=== PATIENT | male | born 1995 | race Caucasian/White ===

== ENCOUNTER 2018-08-05 00:50 | Emergency (ER) | payer OTHER ==
[2018-08-05 00:58] VITALS: TEMP 97.4
[2018-08-05] MEDS ORDERED: Sodium Chloride 0.9% 1,000 ML IV ONE (01:21)
[2018-08-05 01:48] LABS: BASO % 0.3 % (0.0-2.0); EOS # 0.8 K/uL (0.0-0.7); EOS % 4.7 % (0.0-4.0); HEMOGLOBIN 14.8 g/dL (12.0-18.0); LYMPH % 6.1 % (20.0-40.0); MEAN CELL VOLUME 81.3 fL (80.0-94.0); MEAN CORPUSCULAR HEMOGLOBIN 26.9 pg (27.0-31.0); MEAN CORPUSCULAR HGB CONC 33.1 g/dL (33.0-37.0); MEAN PLATELET VOLUME 9.7 fL (7.2-11.7); MONO # 0.5 K/uL (0.0-0.8); MONO % 3.1 % (0.0-10.0); NEUT # 14.6 K/uL (1.8-7.0); NEUT % 85.8 % (50.0-75.0); PLATELET COUNT 234 K/uL (130-400); RED CELL DISTRIBUTION WIDTH 12.9 % (11.5-14.5)
[2018-08-05] MEDS ORDERED: Sodium Chloride 0.9% 1,000 ML ONE (01:48)
[2018-08-05 02:00] LABS: ALB/GLOB RATIO 1.7 (1.0-2.1); ALBUMIN 5.3 g/dL (3.5-5.0); ALT/SGPT 14 U/L (21-72); AST/SGOT 17 U/L (17-59); BLOOD UREA NITROGEN 9 mg/dL (9-20); CALCIUM 9.9 mg/dl (8.6-10.4); GFR NON-AFRICAN AMERICAN > 60; LIPASE 53 U/L (23-300)
[2018-08-05 02:41] LABS: EOSINOPHIL 5 % (0-4); LYMPHOCYTE 6 % (20-40); MONOCYTE 4 % (0-10); NEUTROPHIL 85 % (50-75); PLATELET ESTIMATE NORMAL (NORMAL); TOTAL CELLS COUNTED 100
--- NOTE | 2018-08-05 04:01 | C.PDOC ---
History Of Present Illness 23 year old male presents with epigastic pain associated with several episodes of vomiting and diarrhea for 6 hours [employer] after eating a salad yesterday from outside. Denies fever, recent travel, or sick contact. Time Seen by Provider: 08/05/18 01:10 Chief Complaint (Nursing): Abdominal Pain History Per: Patient History/Exam Limitations: no limitations Onset/Duration Of Symptoms: Hrs Current Symptoms Are (Timing): Still Present Location Of Pain/Discomfort: Epigastric Radiation Of Pain To:: None Quality Of Discomfort: Unable To Describe Associated Symptoms: Vomiting, Diarrhea. denies: Fever Exacerbating Factors: None Alleviating Factors: None Recent travel outside of the [place]: No Past Medical History Reviewed: Historical Data, Nursing Documentation, Vital Signs Vital Signs: Last Vital Signs Temp 97.4 F L 08/05/18 00:56 Pulse 64 08/05/18 00:56 Resp 22 08/05/18 00:56 BP 139/84 08/05/18 00:56 Pulse Ox 99 08/05/18 00:56 Family History: States: Unknown Family Hx - Social History Hx Alcohol Use: No Hx Substance Use: No Review Of Systems Constitutional: Negative for: Fever Respiratory: Negative for: Cough Gastrointestinal: Positive for: Vomiting, Abdominal Pain, Diarrhea Genitourinary: Negative for: Dysuria, Hematuria Skin: Negative for: Rash Physical Exam - Physical Exam Appears: Non-toxic Skin: Normal Color, Warm Head: Atraumatic, Normacephalic Eye(s): bilateral: Normal Inspection Oral Mucosa: Moist Chest: Symmetrical, No Tenderness Cardiovascular: Rhythm Regular Respiratory: Normal Breath Sounds, No Rales, No Rhonchi, No Wheezing Gastrointestinal/Abdominal: Bowel Sounds (Slightly increased), Soft, Tenderness (Minimal epigastric, no RLQ), No Guarding, No Rebound Back: No CVA Tenderness Neurological/Psych: Oriented x3, Normal Speech ED Course And Treatment - Laboratory Results Result Diagrams: 08/05/18 01:46 08/05/18 01:46 Lab Results: Total Bilirubin 0.9 mg/dL (0.2-1.3) 08/05/18 01:46 AST 17 U/L (17-59) 08/05/18 01:46 ALT 14 U/L (21-72) L 08/05/18 01:46 Alkaline Phosphatase 86 U/L (38-126) 08/05/18 01:46 Total Protein 8.4 g/dL (6.3-8.3) H 08/05/18 01:46 Albumin 5.3 g/dL (3.5-5.0) H 08/05/18 01:46 Globulin 3.1 gm/dL (2.2-3.9) 08/05/18 01:46 Albumin/Globulin Ratio 1.7 (1.0-2.1) 08/05/18 01:46 Lipase 53 U/L (23-300) 08/05/18 01:46 O2 Sat by Pulse Oximetry: 99 (Room air) Pulse Ox Interpretation: Normal Progress Note: Labs reviewed, patient with some elevated wbc, otherwise feels like symptoms have improved with meds, resting comfortably, tolerating PO fluids, abdomen remains soft, advised brat diet, and to return if symptoms worsen, patient understand return precautions. Disposition Counseled Patient/Family Regarding: Diagnosis, Need For Followup, Rx Given - Disposition Referrals: [facility] at [facility] [Outside] Disposition: HOME/ ROUTINE Disposition Time: 03:56 Condition: STABLE Additional Instructions: Please follow up with PMD Take meds as directed BRAT diet ( white bread/ toast. 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 - Scribe Statement The provider has reviewed the documentation as recorded by the Janeenibluis angel Pulliam All medical record entries made by the Janeenibluis angel were at my direction and personally dictated by me. I have reviewed the chart and agree that the record accurately reflects my personal performance of the history, physical exam, medical decision making, and the department course for this patient. I have also personally directed, reviewed, and agree with the discharge instructions and disposition.
[2018-08-05 04:15] VITALS: BP 130/80; PULSE 80; RESP 14
[2018-08-05 05:44] VITALS: O2SAT 99
== END 2018-08-05 04:15 | disposition home or self-care (01) ==
LOC: C.ER 00:50
DX: R10.13 Epigastric pain (principal); R11.10 Vomiting, unspecified; R19.7 Diarrhea, unspecified
CPT/HCPCS: 80053; 83690; 85025; 96374; 96375; 99284; J2405; J7030

== ENCOUNTER 2018-08-18 00:06 | Emergency (ER) | payer OTHER ==
[2018-08-18] MEDS ORDERED: Sodium Chloride 0.9% 1,000 ML IV ONE ×3 (00:29→03:58)
--- NOTE | 2018-08-18 00:33 | C.PDOC ---
History Of Present Illness 23-year-old male presents to the ED for evaluation of abdominal pain which began around 4-5 hours prior to arrival. Patient reports associated nausea, vomiting and diarrhea. Patient denies fever, chills. Chief Complaint (Nursing): Abdominal Pain History Per: Patient History/Exam Limitations: no limitations Onset/Duration Of Symptoms: Hrs Past Medical History Reviewed: Historical Data, Nursing Documentation, Vital Signs Vital Signs: Last Vital Signs Temp 98 F 08/18/18 00:20 Pulse 60 08/18/18 00:20 Resp 20 08/18/18 00:20 BP 139/81 08/18/18 00:20 Pulse Ox 97 08/18/18 00:20 - Medical History PMH: No Chronic Diseases Surgical History: No Surg Hx Family History: States: Unknown Family Hx - Social History Hx Alcohol Use: No Hx Substance Use: No Review Of Systems Constitutional: Negative for: Fever, Chills Gastrointestinal: Positive for: Nausea, Vomiting, Abdominal Pain, Diarrhea Physical Exam - Physical Exam Appears: Non-toxic, No Acute Distress Skin: Normal Color, Warm, Dry Head: Atraumatic, Normacephalic Eye(s): bilateral: Normal Inspection Oral Mucosa: Moist Neck: Supple Chest: Symmetrical, No Deformity, No Tenderness Cardiovascular: Rhythm Regular, No Murmur Respiratory: Normal Breath Sounds, No Rales, No Rhonchi, No Wheezing Gastrointestinal/Abdominal: Soft, Tenderness (mild epigastric and mid-abdominal tenderness ), No Guarding, No Rebound Extremity: Normal ROM, Capillary Refill (less than 2 seconds ) Neurological/Psych: Oriented x3, Normal Speech, Normal Cognition ED Course And Treatment - Laboratory Results Result Diagrams: 08/18/18 04:15 08/18/18 00:44 O2 Sat by Pulse Oximetry: 97 (on RA ) Pulse Ox Interpretation: Normal Progress Note: Bloodwork, urinalysis, CT A/P ordered and reviewed. Bentyl IM, Pepcid IVP, and IV Fluids given. Disposition Counseled Patient/Family Regarding: Diagnosis - Disposition Referrals: [facility] [Outside] Disposition: HOME/ ROUTINE Disposition Time: 05:05 Condition: STABLE Prescriptions: Dicyclomine [Bentyl] 10 mg PO TID #20 cap Famotidine [Pepcid] 20 mg PO BID #20 tab Ondansetron ODT [Zofran ODT] 1 odt PO BID PRN #6 odt PRN Reason: Nausea/Vomiting Instructions: Gastritis, Ulcer and Gastritis Diet, Inflammatory Bowel Disease (DC) Forms: [employer] (Kenyan) - POA Present On Arrival: None - Clinical Impression Clinical Impression: Gastritis, Enteritis - Scribe Statement The provider has reviewed the documentation as recorded by the Scribe (Kailey Cantu) Provider Attestation: All medical record entries made by the Scribe were at my direction and personally dictated by me. I have reviewed the chart and agree that the record accurately reflects my personal performance of the history, physical exam, medical decision making, and the department course for this patient. I have also personally directed, reviewed, and agree with the discharge instructions and disposition.
[2018-08-18 00:54] LABS: BASO % 0.2 % (0.0-2.0); EOS # 0.6 K/uL (0.0-0.7); EOS % 3.7 % (0.0-4.0); HEMOGLOBIN 14.6 g/dL (12.0-18.0); MEAN CELL VOLUME 81.4 fL (80.0-94.0); MEAN CORPUSCULAR HEMOGLOBIN 26.4 pg (27.0-31.0); MEAN CORPUSCULAR HGB CONC 32.4 g/dL (33.0-37.0); MEAN PLATELET VOLUME 10.1 fL (7.2-11.7); MONO # 0.4 K/uL (0.0-0.8); MONO % 2.5 % (0.0-10.0); NEUT # 15.2 K/uL (1.8-7.0); NEUT % 87.6 % (50.0-75.0); PLATELET COUNT 206 K/uL (130-400); RBC 5.53 Mil/uL (4.40-5.90); RED CELL DISTRIBUTION WIDTH 12.9 % (11.5-14.5); WHITE BLOOD COUNT 17.3 K/uL (4.8-10.8)
[2018-08-18 00:55] LABS: SQUAMOUS EPITHIAL < 1 /hpf (0-5); URINE BILIRUBIN NEGATIVE (NEGATIVE); URINE BLOOD NEGATIVE (NEGATIVE); URINE CLARITY Hazy (Clear); URINE COLOR Yellow (YELLOW); URINE GLUCOSE (UA) NORMAL (Normal); URINE LEUKOCYTE ESTERASE NEG Leu/uL (Negative); URINE PROTEIN NEGATIVE (NEGATIVE); URINE UROBILINOGEN NORMAL mg/dL (0.2-1.0)
[2018-08-18 01:01] LABS: ALB/GLOB RATIO 1.4 (1.0-2.1); ALBUMIN 4.8 g/dL (3.5-5.0); ALT/SGPT 8 U/L (21-72); AST/SGOT 25 U/L (17-59); BLOOD UREA NITROGEN 11 mg/dL (9-20); CALCIUM 9.7 mg/dl (8.6-10.4); GFR NON-AFRICAN AMERICAN > 60; LIPASE 57 U/L (23-300)
[2018-08-18 01:39] LABS: EOSINOPHIL 3 % (0-4); LYMPHOCYTE 6 % (20-40); MONOCYTE 4 % (0-10); NEUTROPHIL 87 % (50-75); PLATELET ESTIMATE NORMAL (NORMAL); TOTAL CELLS COUNTED 100
[2018-08-18] MEDS ORDERED: Sodium Chloride 0.9% 1,000 ML ONE ×2 (02:38→04:11)
[2018-08-18] MEDS ORDERED: Iodixanol 320 MG/ML 100 ML BOTTLE IV ONE (02:43)
[2018-08-18 04:03] VITALS: TEMP 98.3
[2018-08-18 04:19] LABS: BASO % 0.3 % (0.0-2.0); EOS # 1.7 K/uL (0.0-0.7); EOS % 12.1 % (0.0-4.0); HEMOGLOBIN 12.9 g/dL (12.0-18.0); LYMPH # 1.8 K/uL (1.0-4.3); LYMPH % 13.3 % (20.0-40.0); MEAN CELL VOLUME 81.1 fL (80.0-94.0); MEAN CORPUSCULAR HGB CONC 32.1 g/dL (33.0-37.0); MEAN PLATELET VOLUME 9.4 fL (7.2-11.7); MONO # 0.6 K/uL (0.0-0.8); MONO % 4.4 % (0.0-10.0); NEUT # 9.7 K/uL (1.8-7.0); NEUT % 69.9 % (50.0-75.0); RBC 4.96 Mil/uL (4.40-5.90); RED CELL DISTRIBUTION WIDTH 12.6 % (11.5-14.5); WHITE BLOOD COUNT 13.9 K/uL (4.8-10.8)
[2018-08-18 05:21] VITALS: BP 115/93; PULSE 70; RESP 18; O2SAT 95
--- NOTE | 2018-08-18 09:11 | CT ---
Date of service: 08/18/2018 PROCEDURE: CT Abdomen and Pelvis with contrast HISTORY: upper abd pain COMPARISON: None available. TECHNIQUE: CT scan of the abdomen and pelvis was performed after administration of intravenous contrast. Oral contrast was not administered. Coronal and sagittal reformatted images were obtained. Contrast dose: 100 mL Visipaque 320 Radiation dose: Total exam DLP = 491.74 mGy-cm. This CT exam was performed using one or more of the following dose reduction techniques: Automated exposure control, adjustment of the mA and/or kV according to patient size, and/or use of iterative reconstruction technique. FINDINGS: LOWER THORAX: The visualized lungs are clear. LIVER: Mild hepatomegaly and fatty liver. Normal homogeneous enhancement. No gross lesion or ductal dilatation. GALLBLADDER AND BILE DUCTS: Well distended. No calcified gallstones, wall thickening or pericholecystic fluid. PANCREAS: Normal in size with homogeneous enhancement. No gross lesion or ductal dilatation. SPLEEN: Normal in size and appearance. ADRENALS: No discrete nodule. KIDNEYS AND URETERS: Normal in size with homogeneous enhancement. No hydronephrosis. No solid mass. VASCULATURE: No aortic aneurysm. There are no aortic atherosclerotic calcifications or mural plaque present. BOWEL: Evaluation of the bowel is limited in the absence of oral contrast. There is fluid in the stomach and duodenum. The proximal small bowel loops are normal in caliber. There is fluid in the mid and distal small bowel loops there is fluid in the ascending colon and mild mural thickening in the transverse colon. The left hemicolon is decompressed. No bowel obstruction. APPENDIX: Normal appendix. PERITONEUM: No free fluid. No free air. LYMPH NODES: No enlarged lymph nodes. BLADDER: Well distended and normal in appearance. REPRODUCTIVE: The uterus is normal in size. BONES: No acute fracture. Within normal limits for the patient's age. OTHER FINDINGS: There is a small fat containing umbilical hernia. IMPRESSION: Findings are most compatible with nonspecific acute gastroenteritis and colitis. No evidence for bowel obstruction. Mild hepatomegaly and fatty liver. A preliminary report was provided by [facility].
== END 2018-08-18 05:21 | disposition home or self-care (01) ==
LOC: C.ER 00:06
DX: K29.70 Gastritis, unspecified, without bleeding (principal); K52.9 Noninfective gastroenteritis and colitis, unspecified
CPT/HCPCS: 74177; 80053; 81001; 83690; 85025; 96361; 96372; 96374; 96375; 99285; J0500; J1885; J2405; J7030; Q9967